=== PATIENT | female | born 1990 | race Caucasian/White ===

== ENCOUNTER 2023-05-26 09:07 | Emergency (ER) | payer SELFPAY ==
[~2023-05-26] VITALS: Ht 162.6 cm; Wt 91.0 kg
[2023-05-26 09:09] VITALS: O2SAT 99
[2023-05-26] MEDS ORDERED: ACETAMINOPHEN WITH CODEINE 300/30MG TABLET PO ONE (09:30)
[2023-05-26] MEDS ORDERED: CYCL5TAB MT (10:19)
[2023-05-26 10:57] VITALS: BP 138/77; PULSE 90; RESP 12; TEMP 98.6
== END 2023-05-26 10:58 | disposition home or self-care (01) ==
LOC: ER 10:25
DX: M54.2 Cervicalgia (principal); M25.512 Pain in left shoulder
CPT/HCPCS: 71045; 81025; 99284